=== PATIENT | male | born 1985 | race Caucasian/White ===

== ENCOUNTER 2019-07-03 18:53 | Emergency (ER) | payer SELFPAY ==
[2019-07-03] MEDS: AZITHROMYCIN 500 MG TAB PO (20:05)
[2019-07-03] MEDS: CEFTRIAXONE 250 MG INJ IM (20:06)
[2019-07-03] MEDS: LIDOCAINE 1% (MDV) 20 ML INJ SC (20:06)
== END 2019-07-03 20:48 | disposition home or self-care (01) ==
LOC: FTE 20:48
DX: N34.2 Other urethritis (principal); R39.89 Other symptoms and signs involving the genitourinary system
CPT/HCPCS: 87591; 96372; 99284-25

== ENCOUNTER 2019-08-12 00:40 | Emergency (ER) | payer SELFPAY | END 2019-08-12 01:44 | disposition home or self-care (01) | LOC: FTE 00:40 | DX: R21 Rash and other nonspecific skin eruption (principal); F17.210 Nicotine dependence, cigarettes, uncomplicated | CPT/HCPCS: 99283 ==